=== PATIENT | male | born 1965 | race Caucasian/White ===

== ENCOUNTER 2023-09-15 11:03 | Inpatient (IN) | payer OTHER ==
[~2023-09-15] VITALS: Ht 167.6 cm; Wt 95.8 kg
[2023-09-15] VITALS (7 sets, daily range): BP systolic 159–203; BP diastolic 87–130
--- NOTE | 2023-09-15 11:03 | NUR ---
PATIENT ARRIVED TO ER APOV. PATIENT WHEELED TO ROOM BY ER STAFF. PATIENT AWAKE, ALERT AND STABLE. NODISTRESS NOTED. PHYSICIAN NOTIFIED.
[2023-09-15 11:35] LABS: BASO% 0.4 % (0-3); EOS% 0.7 % (0-8); HEMATOCRIT 40.4 % (39.0-50.0); HEMOGLOBIN 13.3 g/dl (14.0-18.0); IMMATURE GRANULOCYTES 0.3 % (0.0-5.0); LYMPH% 8.7 % (15-41); MEAN CELL VOLUME 91.2 fL CALC (80.0-100.0); MEAN CORPUSCULAR HGB CONC 32.9 g/dL CAL (32.0-36.0); MONO% 9.4 % (2-13); NEUT# 5.67 thou/uL (1.82-7.42); NEUT% 80.5 % (42-76); RED BLOOD COUNT 4.43 mill/uL (4.70-6.10); RED CELL DISTRI WIDTH 14.3 % (11.5-15.5)
[2023-09-15 11:51] LABS: ALBUMIN 4.2 g/dL (3.2-5.0); ALKALINE PHOSPHATASE 107 u/l (38-126); ANION GAP 14 (6-22 (CALC)); BILIRUBIN, TOTAL 3.7 mg/dL (0.2-1.3); BUN 16 mg/dL (9-20); BUN/CREATININE RATIO 16 (12-20 (CALC)); CARBON DIOXIDE 23 mmol/l (22-30); CHLORIDE 102 mmol/l (95-108); GFR FOR AFR.AMER. > 60 ML/MIN (>=60 (CALC)); GFR OTHER RACES > 60 ML/MIN (>=60 (CALC)); POTASSIUM 3.2 mmol/l (3.5-5.1); SGOT/AST 76 u/l (17-59); SODIUM 136 mmol/l (137-146)
[2023-09-15] MEDS ORDERED: IPRATROPIUM-Albuterol 0.5MG-2.5MG/3 ML NEB ONE ×2 (11:55)
[2023-09-15] MEDS ORDERED: cefTRIAXone SODIUM 2 GM in SODIUM CHLORIDE 0.9% 100 ML IV ONE (11:55)
[2023-09-15] MEDS ORDERED: methylPREDNISolone SODIUM SUCC 125 MG/2 ML SDV IV ONE ×2 (11:55→12:25)
[2023-09-15] MEDS ORDERED: SODIUM CHLORIDE 0.9% 1,000 ML IV ONE (11:55)
[2023-09-15] MEDS ORDERED: AZITHROMYCIN 250 MG/TAB PO ONE (12:10)
--- NOTE | 2023-09-15 12:30 | NUR ---
PATIENT AWAKE, ALERT AND STABLE. NO DISTRESS NOTED. PATIENT DENIES ANY PAIN. WILL CONTINUE TO MONITOR.
[2023-09-15] MEDS ORDERED: FUROSEMIDE 40 MG/4 ML SDV IV ONE (12:35)
--- NOTE | 2023-09-15 14:00 | NUR ---
PATIENT AWAKE, ALERT AND STABLE. NO DISTRESS NOTED. VITALS WNL. PATIENT DENIES ANY PAIN. WILL CONTINUE TO MONITOR.
[2023-09-15] MEDS ORDERED: LOSARTAN Potassium 50 MG/TAB PO SCH (15:44)
[2023-09-15] MEDS ORDERED: MAGNESIUM HYDROXIDE 30 ML UDC PO PRN (15:45)
[2023-09-15] MEDS ORDERED: LABETALOL HCL 20 MG/ 4 ML CARTRG IV PRN (15:45)
[2023-09-15] MEDS ORDERED: ACETAMINOPHEN 325 MG/TAB PO PRN (15:45)
--- NOTE | 2023-09-15 16:30 | NUR ---
REPORT CALLED TO PARUL WRIGHT. 2000ML CLEAR YELLOW URINE OUTPUT.
--- NOTE | 2023-09-15 16:40 | NUR ---
RECIEVED REPORT FROM MADDIE IN ER.
--- NOTE | 2023-09-15 16:47 | NUR ---
PT ARRIVED TO [facility] ROOM 269. PT A/OX3. RESPIRATIONS EVEN AND UNLABORED ON ROOOM AIR. LUNG SOUNDS CLEAR. HEART RHYTHM NORMAL. BOWEL SOUNDS ACTIVE. #20G LAC PATENT. SKIN INTACT. 1+ EDEMA NOTED TO BLE.NKDA REPORTED. GLUCOSE RESULTING IN 306 CURRENTLY AND 33 REPORTED IN ED. DIET CHANGED TO DIABETIC DIET, MD INFORMED OF GLUCOSE. ALLERGY BAND AND FALL RISK BAND APPLIED. PT INFORMED OF NEEDED URINE, URINAL PROVIDED. PT DENIES OF ANY PAINS. PT ORIENTED TO ROOM AND CALL LIGHT SYSTEM. ALL SAFETY PRECAUTIONS ARE IN PLACE WITH CALL LIGHT IN REACH.
[2023-09-15] MEDS ORDERED: FUROSEMIDE 40 MG/4 ML SDV IV SCH (17:00)
[2023-09-15] MEDS ORDERED: LISINOPRIL30 MG PO (17:19)
[2023-09-15] MEDS ORDERED: DEXTROSE 250 ML IV PRN (17:25)
[2023-09-15 18:23] LABS: URINE BILIRUBIN - DIPSTICK Negative (NEGATIVE); URINE BLOOD DIPSTICK Small (NEGATIVE); URINE GLUCOSE - DIPSTICK 500 mg/dL (NEGATIVE); URINE KETONE 15 mg/dL (NEGATIVE); URINE LEUK ESTERASE Negative (NEGATIVE); URINE NITRITE - DIPSTICK Negative (Negative); URINE PROTEIN - DIPSTICK Trace mg/dL (NEG-TRACE); URINE SPECIFIC GRAVITY 1.015
[2023-09-15 18:43] LABS: URINE COLOR Yellow; URINE RBC 0-2 RBC/hpf (0-5)
--- NOTE | 2023-09-15 19:45 | NUR ---
PATIENT SITTING ON THE SIDE OF THE BED AT THIS TIME-AWAKE ALERT AND ORIENTEDX3. PATIENT DENIES ANY PAIN AT THIS TIME AND STATES THAT HE IS FEELING MUCH BETTER TONIGHT THAN WHEN HE CAME TO THE ER EARLIER TODAY. PATIENT IS VOIDING CLEAR YELLOW URINE IN URINAL FOR STRICT I&O-PATIENT IS RECEIVING IV LASIX. TELE MONITOR IN PLACE WITH LAST READING SR-90'S. LUNGS ARE CLEAR AT THIS TIME. IV SITE TO LAC INTACT AND HEALTHY AT THIS TIME. SAFETY PRECAUTIONS REINFORCED. CALL LIGHT IN REACH. WILL CONT TO MONITOR.
--- NOTE | 2023-09-15 20:49 | NUR ---
Nurse was notified about patient Glucose 537(High).
[2023-09-15] MEDS ORDERED: ENOXAPARIN SODIUM 40 MG/0.4 ML SYR SC SCH (21:00)
[2023-09-15] MEDS ORDERED: INSULIN LISPRO 100 UNITS/ML ML SC SCH ×2 (21:00→21:30)
--- NOTE | 2023-09-15 22:00 | NUR ---
PATIENT RESTING IN BED-GLUCOSE MONITOR CHECK WAS 537-LAB CALLED FOR STAT GLUCOSE-CAME BACK AT 534. DR. LARSON CALLED WITH CRITICAL RESULTS. NEW ORDER FOR HUMALOG RECEIVED AND HUMALOG SS COVERAGE PROTOCOL CHANGED TO MEDIUM DOSE. PATIENT WAS MEDICATED ORDERED. PROVIDED WITH SNACK. PATIENT WAS EDUCATED REGUARDING DIAB AND S/S OF HIGH BLOOD SUGAR. PATIENT STATES THAT HE HAS NO HISTORY OF DIAB THAT HE IS AWARE OF. DID STATES THAT HE HAS BEEN DRINKING ALOT OF PO FLUIDS AND HAS HAD FREQUENT URINATION EVEN BEFORE COMING TO THE HOSPITAL AND RECEIVING DIURETICS FOR CHF. PATIENT STATES THAT HE CURRENTLY DOESN'T HAVE PCP [facility]. ENCOURAGED PATIENT TO GET ESTABLISHED WITH PCP FOR MULTIPLE MEDICAL NEEDS INCLUDING POSSIBLE DIAB, CHF AN D ELEVATED LIVER ENZYMES. VERBALIZES UNDERSTANDING. PATIENT WITH HOME C-PAP FOR USE AT FOR [facility]. CALL LIGHT IN REACH. WILL CONT TO MONITOR.
[2023-09-16] VITALS (12 sets, daily range): BP systolic 119–181; BP diastolic 78–116
--- NOTE | 2023-09-16 00:39 | NUR ---
PATIENT RESTING IN BED AT THIS TIME WITH HOME C-PAP IN USE. TROP DRAWN ORDERED AND SENT TO LAB. PATIENT CONT TO VOID YELLOW URINE IN URINAL FOR ACCURATE I&O. TELE MONITOR IN PLACE. CALL LIGHT IN REACH. WILL CONT TO MONITOR.
--- NOTE | 2023-09-16 05:00 | NUR ---
RESTING IN BED WITH OWN HOME C-PAP IN PLACE. RESPS ARE EVEN AND UNLABORED. EYES ARE CLOSED. DAILY WEIGHT THIS MORNING IS 95.8KG. TELE MONITOR IN PLACE. SALINE LOCK TO LAC INTACT. CALL LIGHT IN REACH. WILL CONT TO MONITOR.
[2023-09-16 06:50] LABS: BASO% 0.3 % (0-3); HEMATOCRIT 43.6 % (39.0-50.0); HEMOGLOBIN 14.6 g/dl (14.0-18.0); IMMATURE GRANULOCYTES 0.3 % (0.0-5.0); LYMPH% 7.4 % (15-41); MEAN CELL VOLUME 90.3 fL CALC (80.0-100.0); MEAN CORPUSCULAR HGB 30.2 pG CALC (26.0-32.0); MEAN CORPUSCULAR HGB CONC 33.5 g/dL CAL (32.0-36.0); MONO% 8.1 % (2-13); NEUT# 6.61 thou/uL (1.82-7.42); NEUT% 83.9 % (42-76); RED BLOOD COUNT 4.83 mill/uL (4.70-6.10); RED CELL DISTRI WIDTH 14.2 % (11.5-15.5)
[2023-09-16] MEDS ORDERED: INSULIN LISPRO 100 UNITS/ML ML SC SCH (07:00)
[2023-09-16 07:36] LABS: ALBUMIN 4.5 g/dL (3.2-5.0); ALKALINE PHOSPHATASE 114 u/l (38-126); ANION GAP 12 (6-22 (CALC)); BUN 25 mg/dL (9-20); BUN/CREATININE RATIO 20 (12-20 (CALC)); CALCULATED LDLCHOLESTEROL 127 mg/dL (62-129 (CALC)); CHLORIDE 100 mmol/l (95-108); CHOLESTEROL HDL RATIO 6.6 (<4.4 (CALC)); CREATININE 1.2 mg/dL (0.7-1.3); GFR FOR AFR.AMER. > 60 ML/MIN (>=60 (CALC)); GFR OTHER RACES > 60 ML/MIN (>=60 (CALC)); HDL CHOLESTEROL 28 mg/dL (39.0-59.0); POTASSIUM 3.4 mmol/l (3.5-5.1); SGOT/AST 60 u/l (17-59); SODIUM 140 mmol/l (137-146); TOTAL CHOLESTEROL 187 mg/dl (0-199); TOTAL PROTEIN 7.3 g/dL (6.3-8.2); TOTAL TRIGLYCERIDES 159 mg/dl (0-149); VLDL CHOLESTROL 32 mg/dl (8-62 (CALC))
--- NOTE | 2023-09-16 07:43 | NUR ---
PT SITTING UP ON SIDE OF BED. PT A/OX3. RESPIRATIONS EVEN AND UNLABORED ON ROOM AIR. LUNG SOUNDS CLEAR. PRODUCTIVE COUGH NOTED WITH WHITE SPUTUM REPORTED BY PT. HEART RHYTHM NORMAL WITH TELE IN PLACE. BOWEL SOUNDS ACTIVE, LBM 09/15/23. ELEVATED BP NOTED, REASSESSMENT WITH ADMINISTRATION OF MORNING MEDS. #20G LAC PATENT. SKIN INTACT WITH TRACE EDEMA. PT REQUESTING HEMORRIOD CREAM TO BE INFORMED. PT DENIES OF ANY NEEDS AT THIS TIME. PT ORIENTED TO ROOM AND CALL LIGHT. ALL SAFETY PRECAUTIONS ARE IN PLACE WITH CALL LIGHT IN REACH
[2023-09-16 07:56] LABS: CARBON DIOXIDE 31 mmol/l (22-30)
[2023-09-16] MEDS ORDERED: SPIRONOLACTONE 25 MG/TAB PO SCH (09:00)
[2023-09-16] MEDS ORDERED: METOPROLOL SUCCINATE 25 MG/TAB-TOPROL XL PO SCH (09:00)
[2023-09-16] MEDS ORDERED: LISINOPRIL 20 MG/TAB PO SCH (09:00)
--- NOTE | 2023-09-16 09:32 | NUR ---
REASSESSMENT OF BP AT THIS TIME. BP IMPROVED. DRESSING TO #20 RAC CHANGED AT THIS TIME.
--- NOTE | 2023-09-16 09:33 | NUR ---
BOOKED A CARDIOLOGY CONSULT WITH DR OVALLE VIA THE [facility] AT 0931 HRS.
[2023-09-16] MEDS ORDERED: GUAIFENESIN 600 MG/TAB PO SCH (10:30)
[2023-09-16] MEDS ORDERED: AZITHROMYCIN 500 MG in SODIUM CHLORIDE 0.9% 250 ML IV SCH ×2 (12:00→13:00)
--- NOTE | 2023-09-16 12:07 | NUR ---
PT RESTING IN SEMI FOWLERS POSITION. RESPIRATIONS EVEN AND UNLABORED ON ROOM AIR. TELE MONITORING IN PLACE. IV NOTED. I.S GIVEN TO PT DUE TO POOR INSPIRATIONS. PT EDUCATED ON USE AND ABLE TO DEMONDSTART 1500. PT DENIES OF ANY NEEDS. ALL SAFETY PRECAUTIONS ARE IN PLACE WITH CALL LIGHT IN REACH
[2023-09-16] MEDS ORDERED: FUROSEMIDE 40 MG/4 ML SDV IV SCH (14:00)
[2023-09-16] MEDS ORDERED: POTASSIUM CHLORIDE 20 MEQ/TAB PO SCH (14:00)
--- NOTE | 2023-09-16 16:25 | NUR ---
PT RESTING IN SEMI FOWLERS POSITION. RESPIRATIONS EVEN AND UNLABORED ON ROOM AIR. TELE MONITORING IN PLACE. #20G LAC NOTED. PT DENIES OF ANY NEEDS. BP NOTED. PT DENIES OF ANY NEEDS. ALL SAFETY PRECAUTIONS ARE IN PLACE WITH CALL LIGHT IN REACH
--- NOTE | 2023-09-16 20:00 | NUR ---
PATIENT SITTING UP ON THE SIDE OF THE BED. AWAKE ALERT AND ORIENTEDX3. PATIENT WITH NO COMPLAINTS AT THIS TIME. TELE MONITOR IN PLACE WITH LAST READING SR-80'S. SALINE LOCK TO LAC-SITE REMAINS INTACT. VOIDING CLEAR YELLOW U RINE IN BR IN URINAL. STATES THAT HE DID HAVE BM TODAY. NO PERIPHERAL EDEMA AT THIS TIME. PULSES ARE PALPABLE. SAFETY PRECAUTIONS REINFORCED. CALL LIGHT IN REACH. WILL CONT TO MONITOR.
[2023-09-16] MEDS ORDERED: CARVEDILOL 25 MG/TAB PO SCH (21:00)
--- NOTE | 2023-09-16 21:30 | NUR ---
RESTING IN BED-BLOOD SUGAR TONIGHT IS 267-COVERED WITH 5 UNITS OF HUMALOG PER SS COVERAGE PROTOCOL. PROVIDED WITH HS SNACK. LASIX GIVEN ORDERED. CALL LIGHT IN REACH. WILL CONT TO MONITOR.
--- NOTE | 2023-09-17 01:18 | NUR ---
PATIENT RESTING IN BED WITH OWN C-PAP IN PLACE. EYES ARE CLOSED AND RESPS ARE EVEN AND UNLABORED. TELE MONITOR IN PLACE. CALL LIGHT IN REACH. WILL CONT TO MONITOR.
[2023-09-17 04:23] VITALS: BP 167/102
--- NOTE | 2023-09-17 05:15 | NUR ---
PT DAILY WEIGHT WAS NOT OBTAINED DUE TO UNIT STANDING SCALE NOT WORKING. RN TAMIKO DEAN
--- NOTE | 2023-09-17 05:36 | NUR ---
IV SITE TO LEFT AC IS LEAKING AND HAD LOOSE CONNECTION. SITE WAS REDRESSED AND SITE REMAINS HEALTHY WITH GOOD BLOOD RETURN. IV LASIX GIVEN SCHEDULED. TGELE MONITOR IN [facility] [address] WITH LAST READING SRT-73. CONT TO VOID IN URINAL FOR STRICT I&O. NO COMPLAINTS AT THIS TIME. AM LABS WERE DRAWN. CALL LIGHT IN REACH. WILL CONT TO MONITOR.
--- NOTE | 2023-09-17 07:04 | NUR ---
PT RESTING IN HIGH FOWLERS POSITION AT THE TIME . A/OX3 RESPIRATIONS ON ROOM AIR. PT TELE NOTED. PT RECIEVING CARDIAC CONSULT AT THE TIME. WITH NIGHT NURSE AT BED SIDE ALL SAFETY PRECAUTIONS IN PLACE WITH CALL LIGHT IN REACH.
[2023-09-17 07:30] LABS: BASO% 0.2 % (0-3); EOS% 2.1 % (0-8); HEMATOCRIT 44.3 % (39.0-50.0); HEMOGLOBIN 14.4 g/dl (14.0-18.0); IMMATURE GRANULOCYTES 0.4 % (0.0-5.0); MEAN CELL VOLUME 94.1 fL CALC (80.0-100.0); MEAN CORPUSCULAR HGB 30.6 pG CALC (26.0-32.0); MEAN CORPUSCULAR HGB CONC 32.5 g/dL CAL (32.0-36.0); MONO% 10.5 % (2-13); NEUT# 5.81 thou/uL (1.82-7.42); NEUT% 68.8 % (42-76); RED BLOOD COUNT 4.71 mill/uL (4.70-6.10); RED CELL DISTRI WIDTH 14.5 % (11.5-15.5)
[2023-09-17 08:04] LABS: ALBUMIN 3.9 g/dL (3.2-5.0); ALKALINE PHOSPHATASE 95 u/l (38-126); ANION GAP 11 (6-22 (CALC)); BILIRUBIN, TOTAL 1.8 mg/dL (0.2-1.3); BUN 28 mg/dL (9-20); BUN/CREATININE RATIO 24 (12-20 (CALC)); CARBON DIOXIDE 31 mmol/l (22-30); CHLORIDE 100 mmol/l (95-108); CREATININE 1.2 mg/dL (0.7-1.3); GFR FOR AFR.AMER. > 60 ML/MIN (>=60 (CALC)); GFR OTHER RACES > 60 ML/MIN (>=60 (CALC)); MAGNESIUM 1.9 mg/dL (1.6-2.3); POTASSIUM 3.1 mmol/l (3.5-5.1); SGOT/AST 65 u/l (17-59); SODIUM 139 mmol/l (137-146); TOTAL PROTEIN 6.5 g/dL (6.3-8.2)
[2023-09-17 08:44] VITALS: BP 150/93
[2023-09-17] MEDS ORDERED: POTASSIUM CHLORIDE 20 MEQ/TAB PO SCH (09:00)
[2023-09-17 10:32] VITALS: BP 151/97
--- NOTE | 2023-09-17 12:05 | NUR ---
MD STATED NOT TO GIVE ABX TO PT MD WILL DC IN [facility]. PT AWARE PT STATED WILL BE DC TODAY PENDING DC.
[2023-09-17] MEDS ORDERED: CARVEDILOL25 MG PO (12:21)
[2023-09-17] MEDS ORDERED: ALDACTONE25 MG PO (12:23)
--- NOTE | 2023-09-17 13:55 | NUR ---
Discharge instructions given. Patient verbalizes understanding of same. Discharged in stable condition via Wheelchair to Home with staff. All belongings sent with pt. IV REMOVED TELE REMOVED
== END 2023-09-17 13:54 | disposition home or self-care (01) | DRG 291 ==
LOC: ED 11:03 → ED-I 14:40 → ED 15:45 → MS2 15:46
PROVIDERS: Family Medicine; Nurse Practitioner Family; ADMIT Student in an Organized Health Care Education/Training Program; ATTEND Student in an Organized Health Care Education/Training Program
DX: I11.0 Hypertensive heart disease with heart failure (principal); I50.31 Acute diastolic (congestive) heart failure; I16.0 Hypertensive urgency; I42.9 Cardiomyopathy, unspecified; E11.9 Type 2 diabetes mellitus without complications; I27.20 Pulmonary hypertension, unspecified; I08.3 Combined rheumatic disorders of mitral, aortic and tricuspid valves; G47.33 Obstructive sleep apnea (adult) (pediatric)
CPT/HCPCS: J1650; Q9967